=== PATIENT | female | born 1990 | race Hispanic/Latino ===

== ENCOUNTER 2019-03-13 17:20 | Emergency (ER) | payer OTHER, SELFPAY ==
[2019-03-13] MEDS ORDERED: HYDROCODONE/APAP 10/325 TAB ONE (18:27)
--- NOTE | 2019-03-13 18:55 | ER ---
Nurse's Notes [facility] Name: Sunni Mosley Age: 28 yrs Sex: Female : 1990 Arrival Date: 03/13/2019 Time: 17:23 Bed 11 Private MD: Diagnosis: Superficial injury of head;Headache;Pain in thoracic spine;Chest pain, unspecified Presentation: 03/13 17:39 Presenting complaint: Patient states: was on daughter's hover board, fell and hit back iw of head, started feeling nauseous, head feels like it's burning and her chest hurts, incident occurred an hour, denies LOC. Transition of care: patient was not received from another setting of care. Mechanism of Injury: resulted from a fall. Onset of symptoms was March 13, 2019. Risk Assessment: Do you want to hurt yourself or someone else? Patient reports no desire to harm self or others. Initial Sepsis Screen: Does the patient meet any 2 criteria? No. Patient's initial sepsis screen is negative. Does the patient have a suspected source of infection? No. Patient's initial sepsis screen is negative. Care prior to arrival: None. 17:39 Method Of Arrival: Ambulatory iw 17:39 Acuity: TOMAS 4 iw Triage Assessment: 18:30 Neuro: Level of Consciousness is awake, alert, obeys commands, Reports headache. iw 18:50 General: Appears in no apparent distress. Behavior is calm, cooperative. 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 - Social history:: Smoking status: Patient/guardian denies using tobacco. - Ebola Screening: : Patient negative for fever greater than or equal to 101.5 degrees Fahrenheit, and additional compatible Ebola Virus Disease symptoms Patient denies exposure to infectious person Patient denies travel to an Ebola-affected area in the 21 days before illness onset No symptoms or risks identified at this time. Screenin:50 Abuse screen: Denies threats or abuse. Denies injuries from another. Nutritional iw screening: No deficits noted. Tuberculosis screening: No symptoms or risk factors identified. Fall Risk None identified. Assessment: 18:00 General: Appears in no apparent distress. Behavior is calm, cooperative. Pain: iw Complains of pain in right occipital area and right side of forehead and left occipital area and left side of forehead. Neuro: Level of Consciousness is awake, alert, obeys commands, Oriented to person, place, time, situation. Cardiovascular: Patient's skin is warm and dry. Respiratory: Respiratory effort is even, unlabored. Derm: Skin is intact, is healthy with good turgor. Musculoskeletal: Range of motion: intact in all extremities. Vital Signs: 17:41 BP 125 / 78; Pulse 89; Resp 16; Temp 98.9; Pulse Ox 100% on R/A; Weight 77.11 kg; iw Height 5 ft. 5 in. (165.10 cm); Pain 8/10; 17:41 Body Mass Index 28.29 (77.11 kg, 165.10 cm) iw Mirella Coma Score: 17:39 Eye Response: spontaneous(4). Verbal Response: oriented(5). Motor Response: obeys iw commands(6). Total: 15. 18:21 Eye Response: spontaneous(4). Verbal Response: oriented(5). Motor Response: obeys kdr commands(6). Total: 15. ED Course: 17:23 Patient arrived in ED. rg4 17:29 Pascual Gilliam MD is Attending Physician. kdr 17:40 Triage completed. iw 17:41 Arm band placed on. iw 17:54 Radha Abraham, MARGE is Primary Nurse. iw 18:30 Patient has correct armband on for positive identification. iw 18:50 No provider procedures requiring assistance completed. Patient did not have IV access iw during this emergency room visit. Administered Medications: No medications were administered Outcome: 18:42 Discharge ordered by . kdr 18:50 Discharged to home ambulatory. iw 18:50 Condition: good 18:50 Discharge instructions given to patient, Instructed on discharge instructions, follow up and referral plans. Demonstrated understanding of instructions, follow-up care. 18:51 Patient left the ED. iw Signatures: Pascual Gilliam MD MD kdr Radha Abraham RN RN iw Vani Leavitt rg4
--- NOTE | 2019-03-13 18:56 | EDPHYS ---
Physician Documentation [facility] Name: Sunni Mosley Age: 28 yrs Sex: Female : 1990 Arrival Date: 03/13/2019 Time: 17:23 Bed 11 Private MD: ED Physician Pascual Gilliam HPI: 03/13 18:21 This 28 yrs old Female presents to ER via Ambulatory with complaints of Head kdr Injury-Adult. 18:21 The patient or guardian reports pain. The complaints affect the left side of forehead, kdr left occipital area, right side of forehead and right occipital area. Context of injury: The problem was sustained on a street or driveway, resulted from a fall, Standing on hover board. Onset: The symptoms/episode began/occurred suddenly, just prior to arrival, 3 day(s) ago. Associated signs and symptoms: Loss of consciousness: This patient did not experience any loss of consciousness. Pertinent positives: dazed, chest pain and mid back pain, Pertinent negatives: biting tongue, double vision, incontinence, injury, neck pain, seizure, shortness of breath, vomiting, weakness in extremities, generalized weakness. Severity of symptoms: At their worst the symptoms were mild, just prior to arrival, in the emergency department the symptoms are unchanged. The patient has not experienced similar symptoms in the past. The patient has not recently seen a physician. 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 - Social history:: Smoking status: Patient/guardian denies using tobacco. - Ebola Screening: : Patient negative for fever greater than or equal to 101.5 degrees Fahrenheit, and additional compatible Ebola Virus Disease symptoms Patient denies exposure to infectious person Patient denies travel to an Ebola-affected area in the 21 days before illness onset No symptoms or risks identified at this time. ROS: 18:21 Constitutional: Negative for fever, chills, and weight loss, Eyes: Negative for injury, kdr pain, redness, and discharge, ENT: Negative for injury, pain, and discharge, Neck: Negative for injury, pain, and swelling, Respiratory: Negative for shortness of breath, cough, wheezing, and pleuritic chest pain, Abdomen/GI: Negative for abdominal pain, nausea, vomiting, diarrhea, and constipation, : Negative for injury, bleeding, discharge, and swelling, MS/Extremity: Negative for injury and deformity, Skin: Negative for injury, rash, and discoloration, Neuro: Negative for headache, weakness, numbness, tingling, and seizure activity. Psych: Negative for depression, anxiety, suicide ideation, homicidal ideation, and hallucinations, Allergy/Immunology: Negative for hives, rash, and allergies, Endocrine: Negative for neck swelling, polydipsia, polyuria, polyphagia, and marked weight changes, Hematologic/Lymphatic: Negative for swollen nodes, abnormal bleeding, and unusual bruising. 18:21 Cardiovascular: Positive for chest pain, Negative for edema, orthopnea, palpitations. 18:21 Back: Positive for injury or acute deformity, pain with movement, Negative for pain at rest, radiated pain, acute changes. Exam: 18:21 Constitutional: This is a well developed, well nourished patient who is awake, alert, kdr and in no acute distress. Head/Face: Normocephalic, atraumatic. Eyes: Pupils equal round and reactive to light, extra-ocular motions intact. Lids and lashes normal. Conjunctiva and sclera are non-icteric and not injected. Cornea within normal limits. Periorbital areas with no swelling, redness, or edema. Neck: Trachea midline, no thyromegaly or masses palpated, and no cervical lymphadenopathy. Supple, full range of motion without nuchal rigidity, or vertebral point tenderness. No Meningismus. Chest/axilla: Normal chest wall appearance and motion. Nontender with no deformity. No lesions are appreciated. Cardiovascular: Regular rate and rhythm with a normal S1 and S2. No gallops, murmurs, or rubs. Normal PMI, no JVD. No pulse deficits. Respiratory: Lungs have equal breath sounds bilaterally, clear to auscultation and percussion. No rales, rhonchi or wheezes noted. No increased work of breathing, no retractions or nasal flaring. Abdomen/GI: Soft, non-tender, with normal bowel sounds. No distension or tympany. No guarding or rebound. No evidence of tenderness throughout. Back: No spinal tenderness. No costovertebral tenderness. Full range of motion. Skin: Warm, dry with normal turgor. Normal color with no rashes, no lesions, and no evidence of cellulitis. MS/ Extremity: Pulses equal, no cyanosis. Neurovascular intact. Full, normal range of motion. Neuro: Awake and alert, GCS 15, oriented to person, place, time, and situation. Cranial nerves II-XII grossly intact. Motor strength 5/5 in all extremities. Sensory grossly intact. Cerebellar exam normal. Normal gait. Psych: Awake, alert, with orientation to person, place and time. Behavior, mood, and affect are within normal limits. Vital Signs: 17:41 BP 125 / 78; Pulse 89; Resp 16; Temp 98.9; Pulse Ox 100% on R/A; Weight 77.11 kg; iw Height 5 ft. 5 in. (165.10 cm); Pain 8/10; 17:41 Body Mass Index 28.29 (77.11 kg, 165.10 cm) iw Hinkle Coma Score: 17:39 Eye Response: spontaneous(4). Verbal Response: oriented(5). Motor Response: obeys iw commands(6). Total: 15. 18:21 Eye Response: spontaneous(4). Verbal Response: oriented(5). Motor Response: obeys [facility] commands(6). Total: 15. MDM: 18:21 Data reviewed: vital signs, nurses notes, lab test result(s), radiologic studies. kdr Counseling: I had a detailed discussion with the patient and/or guardian regarding: the historical points, exam findings, and any diagnostic results supporting the discharge/admit diagnosis, the need for outpatient follow up. 18:42 Patient medically screened. kdr 03/13 18:38 Order name: Urine Dipstick--Ancillary (enter results) kj 03/13 18:38 Order name: Urine --Ancillary (enter results) [facility] 03/13 18:09 Order name: Urine Test (obtain specimen); Complete Time: 18:36 kdr Administered Medications: No medications were administered Disposition: 03/13/19 18:42 Discharged to Home. Impression: Superficial injury of head, Headache, Pain in thoracic spine, Chest pain, unspecified. - Condition is Stable. - Discharge Instructions: Nonspecific Chest Pain, General Headache Without Cause, Thoracic Strain, Chest Wall Pain, [id number], Nonspecific Chest Pain, [id number]. - Prescriptions for Ibuprofen 600 mg Oral Tablet - take 1 tablet by ORAL route every 6 hours As needed take with food; 15 tablet. Cyclobenzaprine 10 mg Oral Tablet - take 1 tablet by ORAL route every 8 hours As needed; 15 tablet. Tramadol 50 mg Oral Tablet - take 1 tablet by ORAL route every 8 hours as needed primarily at night; 12 tablet. - Medication Reconciliation Form, Thank You Letter, Prescription Opioid Use form. - Follow up: Private Physician; When: 2 - 3 days; Reason: If symptoms return, Further diagnostic work-up, Recheck today's complaints, Continuance of care, Re-evaluation by your physician. - Problem is new. - Symptoms have improved. Signatures: Dispatcher [employer] EDPascual George MD MD kdr Radha Abraham RN RN iw Corrections: (The following items were deleted from the chart) 18:51 18:42 03/13/2019 18:42 Discharged to Home. Impression: Superficial injury of head; iw Headache; Pain in thoracic spine; Chest pain, unspecified. Condition is Stable. Forms are Medication Reconciliation Form, Thank You Letter, Antibiotic Education, Prescription Opioid Use. Follow up: Private Physician; When: 2 - 3 days; Reason: If symptoms return, Further diagnostic work-up, Recheck today's complaints, Continuance of care, Re-evaluation by your physician. Problem is new. Symptoms have improved. kdr
[2019-03-13 19:01] LABS: Urine Blood TRACE (NEG); Urine Glucose NEGATIVE (NEG); Urine Protein NEGATIVE (NEG)
[2019-03-13 19:44] VITALS: BP 125/78; TEMP 98.9; O2SAT 100
== END 2019-03-13 18:51 | disposition home or self-care (01) ==
LOC: ER 17:20
DX: S00.90XA Unspecified superficial injury of unspecified part of head, initial encounter (principal); M54.6 Pain in thoracic spine; R07.9 Chest pain, unspecified; R51 Headache; W17.89XA Other fall from one level to another, initial encounter; Y93.89 Activity, other specified; Y92.410 Unspecified street and highway as the place of occurrence of the external cause
CPT/HCPCS: 81003; 81025; 99281